=== PATIENT | male | born 1980 | race African-American/Black ===

== ENCOUNTER 2022-07-03 17:18 | Emergency (ER) | payer OTHER, SELFPAY ==
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
[2022-07-03 17:27] VITALS: BP 154/92; PULSE 68; RESP 18; TEMP 36.5; O2SAT 99; BMI 29.6
[2022-07-03] MEDS: Acetaminophen 325 MG TABLET 975 MG PO (18:29)
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
[2022-07-03 19:03] VITALS: BP 134/91; PULSE 52; RESP 15; O2SAT 100
== END 2022-07-03 20:40 | disposition home or self-care (01) ==
PROVIDERS: Emergency Provider Emergency Medicine
DX: S16.1XXA Strain of muscle, fascia and tendon at neck level, initial encounter (principal); S29.012A Strain of muscle and tendon of back wall of thorax, initial encounter; R51.9 Headache, unspecified; M54.2 Cervicalgia; X58.XXXA Exposure to other specified factors, initial encounter; Y93.9 Activity, unspecified; Y92.9 Unspecified place or not applicable; Y99.9 Unspecified external cause status
CPT/HCPCS: 70450; 72125; 72128; 99284

== ENCOUNTER 2024-09-11 09:37 | Emergency (ER) | payer OTHER, SELFPAY ==
--- NOTE | ~2024-09-11 | XR_ITS ---
EXAMINATION: XR LUMBOSACRAL SPINE CLINICAL INFORMATION: low back pain COMPARISON: None available. TECHNIQUE: Three views of the lumbosacral spine. FINDINGS: Castellvi type III sacralization. No acute cortical disruption or malalignment. No lytic or blastic lesions. XR/XR lumbar spine 2-3V IMPRESSION: Castellvi type III sacralization. Electronically signed by: Francois Isaac MD 09/11/2024 12:49 PM EDT
[2024-09-11 09:57] VITALS: BP 128/78; PULSE 63; RESP 18; TEMP 36.6; O2SAT 98; BMI 25.5
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
[2024-09-11 12:01] VITALS: BP 128/92; PULSE 64; RESP 14; TEMP 36.9; O2SAT 99
--- NOTE | 2024-09-11 12:12 | ECG_ITS ---
Test Reason : low back pain Blood Pressure : */* mmHG Vent. Rate : 51 BPM Atrial Rate : 51 BPM P-R Int : 186 ms QRS Dur : 88 ms QT Int : 418 ms P-R-T Axes : 68 50 42 degrees QTcB Int : 385 ms Sinus bradycardia Otherwise normal ECG No previous ECGs available Referred By: Martina Dhaliwal Electronically Signed By: Carl Agee
[2024-09-11 12:35] LABS: MANUAL DIFF FLAG NO
[2024-09-11 12:37] LABS: Basophils Percent Auto 0.5 % (0-2); Eosinophils Absolute Auto 0.1 X10*3/uL (0.0-0.4); Eosinophils Percent Auto 1.6 % (0-4); Hematocrit 40.7 % (42.0-52.0); Hemoglobin 14.3 g/dl (14.0-18.0); Imm Gran Abs Auto 0.01 X10*3/uL (0.00-0.03); Imm Gran Pct Auto 0.2 % (0.0-0.4); Lymphocytes Absolute Auto 2.3 X10*3/uL (1.2-4.9); Lymphocytes Percent Auto 51.9 % (20-40); Mean Corpuscular HGB Conc 35.1 g/dl (31.0-36.0); Mean Corpuscular Hemoglobin 29.9 pg (27.0-33.0); Mean Corpuscular Volume 85.1 fL (80.0-98.0); Mean Platelet Volume 9.6 fL (9.4-12.4); Monocytes Absolute Auto 0.4 X10*3/uL (0.1-1.2); Monocytes Percent Auto 9.8 % (2-11); Neutrophils Absolute Auto 1.6 x10*3/uL (2.0-8.3); Platelet Count 207 X10*3/uL (160-400); Red Blood Count 4.78 X10*6/uL (4.60-5.80); Red Cell Distribution Width 12.4 % (11.0-16.0); White Blood Count 4.4 X10*3/uL (4.8-10.8)
[2024-09-11 12:42] LABS: Appearance Urine Clear; Color Urine Yellow; Glucose Urine UA Negative (Negative); Leukocyte Esterase Urine Negative (Negative); Nitrite Urine Negative (Negative); Urine Blood Negative (Negative); Urine Ketones Trace mg/dL (Negative); Urine Protein Negative (Neg-Trace)
[2024-09-11 12:52] LABS: Alanine Aminotransferase 28 U/L (0-40); Albumin Level 4.3 g/dL (3.5-5.0); Alkaline Phosphatase 65 U/L (39-117); Anion Gap 10 (12-20); Aspartate Amino Transferase 21 U/L (5-37); Bilirubin Total 0.5 mg/dL (0.0-1.0); Blood Urea Nitrogen 8 mg/dL (9-16); C Reactive Protein 0.65 mg/dL (< or = 0.50); Calcium 9.1 mg/dL (8.4-10.2); Carbon Dioxide 27 mmol/L (22-29); Chloride 108 mmol/L (96-108); Estimated Glomerular Filt Rate > 60; Glucose Random 82 mg/dL (60-115); Potassium 3.7 mmol/L (3.3-5.1); Sodium 141 mmol/L (135-145)
[2024-09-11 12:59] LABS: Troponin-I High Sensitivity 9.6 ng/L (<3.5-35.0)
[2024-09-11 13:17] LABS: Erythrocyte Sedimentation Rate 6 MM/HR (0-15)
[2024-09-11 13:19] LABS: Influenza A PCR NEGATIVE (Negative); Influenza B PCR NEGATIVE (Negative); Resp Syncy Virus RNA Qual PCR NEGATIVE (Negative); SARS COV2 PCR INHOUSE NEGATIVE (Negative)
[2024-09-11] MEDS: Cyclobenzaprine HCl 5 MG TABLET PO (14:33)
[2024-09-11] MEDS: Ketorolac Tromethamine 15 MG/ML VIAL IM (14:33)
[2024-09-11 14:53] VITALS: BP 128/92; PULSE 64; RESP 14; TEMP 36.9; O2SAT 99
== END 2024-09-11 14:54 | disposition home or self-care (01) ==
PROVIDERS: Physician Assistant Medical; Emergency Provider Emergency Medicine Emergency Medical Services
DX: M54.50 Low back pain, unspecified (principal); B34.9 Viral infection, unspecified; R00.1 Bradycardia, unspecified; R50.9 Fever, unspecified; R51.9 Headache, unspecified; Z03.818 Encounter for observation for suspected exposure to other biological agents ruled out; Z79.899 Other long term (current) drug therapy
CPT/HCPCS: 0241U; 72100; 80053; 81003; 83735; 84484; 85025; 85652; 86140; 93005; 96372; 99284; J1885

== ENCOUNTER → 2024-09-11 12:12 | Outpatient (BNV) | payer OTHER, SELFPAY | PROVIDERS: Emergency Provider Emergency Medicine Emergency Medical Services; Visit Provider Radiology Diagnostic Radiology | DX: M54.50 Low back pain, unspecified (principal) | CPT/HCPCS: 72100 ==

== ENCOUNTER → 2024-09-11 12:12 | Outpatient (BNV) | payer OTHER, SELFPAY | PROVIDERS: Emergency Provider Emergency Medicine Emergency Medical Services; Visit Provider Internal Medicine Cardiovascular Disease | DX: R00.1 Bradycardia, unspecified (principal); M54.50 Low back pain, unspecified | CPT/HCPCS: 93010 ==

== ENCOUNTER 2025-01-25 11:45 | Outpatient (REF) | payer BC, SELFPAY ==
[2025-01-25 14:14] LABS: MANUAL DIFF FLAG NO
[2025-01-25 14:27] LABS: Hematocrit 40.9 % (42.0-52.0); Hemoglobin 14.1 g/dl (14.0-18.0); Imm Gran Abs Auto 0.00 X10*3/uL (0.00-0.03); Imm Gran Pct Auto 0.0 % (0.0-0.4); Lymphocytes Absolute Auto 2.2 X10*3/uL (1.2-4.9); Mean Corpuscular HGB Conc 34.5 g/dl (31.0-36.0); Mean Corpuscular Hemoglobin 29.2 pg (27.0-33.0); Mean Corpuscular Volume 84.7 fL (80.0-98.0); NRBC Abs Auto 0.000 X10*3/uL (0.0-0.012); NRBC Pct Auto 0.0 /100WBC (0.0-0.2); Platelet Count 261 X10*3/uL (160-400); Red Blood Count 4.83 X10*6/uL (4.60-5.80); White Blood Count 4.6 X10*3/uL (4.8-10.8)
[2025-01-25 14:38] LABS: Hemoglobin A1C 134.4295 umol/L; Total Hemoglobin (HGBA1C) 3716.9497 umol/L
[2025-01-25 14:46] LABS: Alanine Aminotransferase 25 U/L (0-40); Albumin Level 4.6 g/dL (3.5-5.0); Alkaline Phosphatase 67 U/L (39-117); Anion Gap 12 (12-20); Aspartate Amino Transferase 23 U/L (5-37); Blood Urea Nitrogen 9 mg/dL (9-16); Calcium 8.8 mg/dL (8.4-10.2); Carbon Dioxide 22 mmol/L (22-29); Chloride 111 mmol/L (96-108); Cholesterol 215 mg/dL (<200); Estimated Glomerular Filt Rate > 60; HDL Cholesterol 40 mg/dL (>40); Potassium 4.0 mmol/L (3.3-5.1); Sodium 141 mmol/L (135-145); Total Protein 7.9 g/dL (6.5-8.0); Triglycerides 80 mg/dL (<150)
[2025-01-25 17:53] LABS: Appearance Urine Clear; Glucose Urine UA Negative (Negative); PH 6.5 (5.0-9.0); Specific Gravity - Urine 1.020 (1.005-1.025)
[2025-01-25 18:30] LABS: Microalbum/Creatinine Ratio Ur 2.5 ug/mg cr (<30)
[2025-01-27 21:49] LABS: TS Negative Control Passed; TS Panel A 1; TS Panel B 1; TS Positive Control Passed; TSpotTB Negative (Negative)
== END 2025-01-25 11:46 | disposition home or self-care (01) ==
LOC: HO.WFDLDS 11:45
PROVIDERS: Visit Provider Family Medicine
DX: Z00.00 Encounter for general adult medical examination without abnormal findings (principal); Z11.1 Encounter for screening for respiratory tuberculosis; Z12.5 Encounter for screening for malignant neoplasm of prostate; I10 Essential (primary) hypertension; R73.01 Impaired fasting glucose
CPT/HCPCS: 36415; 80053; 80061; 81003; 82043; 82570; 83036; 84153; 84443; 85025; 86481

== ENCOUNTER 2025-04-27 12:12 | Outpatient (AMB) | payer OTHER, SELFPAY ==
--- NOTE | 2025-04-27 12:20 | MHC.PC.OV ---
Vital Signs 04/27/25 12:24 Height 5 ft 6 in Weight 171 lb 4 oz BMI 27.6 BP 139/89 Blood Pressure Location Rt brachial Position Sitting Respiration 18 Pulse 6 L Pulse Source Pulse Oximeter Temp 98.5 F Temp Source Oral Pulse Oximetry (%) 96 Oxygen Delivery Method Room Air Intake Visit Reasons: CPE with f/u labs and health maint. Intake Note: patient is scheduled for CPE labs are completed health maintenance is up to date [place] Slabs Required: No Allergies No Known Allergies Allergy (Verified 04/27/25 12:22) Tobacco use date assessed: 04/27/25 Dental Screening Dental Screen Date: 04/27/25 Did you have a dental visit in the last 12 months?: Yes Did you have a dental problem in the last 6 months where you did not have access to dental care?: No Was dental information given to patient?: No HPI CPE with f/u labs and health maint. HPI Details 45 y/o male presents for a CPE with f/u labs and health maint. Labs drawn 01/25/25. Reviewed labs with pt. Triglycerides 80. TC 215. LDL 159. HDL 40. PSA 1.20. Complaints of erectile dysfunction. Has complaints of intermittent asthma. COUNT INCLUDES [facility] Medical History Asthma Family History Mother High blood pressure Sister Diabetes Social History Housing: House Patient Tobacco Use Status: Never used Tobacco e-Cigarette/Vaping Use: Never Used service: No Current occupational status: employed Current occupation: senior living staff Cognitive needs: No Hearing needs: No Vision needs: No Questionnaire PHQ-9 Over the last 2 weeks, how often have you been bothered by any of the following problems? 1. Little interest or pleasure in doing things: not at all 2. Feeling down, depressed, or hopeless: not at all 3. Trouble falling or staying asleep, or sleeping too much: not at all 4. Feeling tired or having little energy: not at all 5. Poor appetite or overeating: not at all 6. Feeling bad about yourself - or that you are a failure or have let yourself or your family down: not at all 7. Trouble concentrating on things, such as reading the newspaper or watching television: not at all 8. Moving or speaking so slowly that other people could have noticed. Or the opposite - being so fidgety or restless that you have been moving around a lot more than usual: not at all 9. Thoughts that you would be better off or of hurting yourself in some way: not at all Total score: 0 Depression Screening Interpretation: Negative Depression Screening Done: Yes 98899 - PHQ-9 Billing: Yes Source: Developed by Drs. Lane Luna, Lindsay Brink, Dre Brennan and colleagues, with an educational sherita from [employer]. Thrive Questionnaire Date Thrive assessed: 04/27/25 I am a: Patient What is your living situation today?: I have a steady place to live Within the past 12 months, did the food you bought not last and you didn't have the money to get more?: Never true Within the past 12 months, did you worry whether your food would run out before you got money to buy more?: Never true Do you have trouble paying for medicines?: No Do you have trouble getting transportation to medical appointments?: No Do you have trouble paying your heating and electricity bill?: No Do you have trouble taking care of your child, family member or friend?: No Do you have trouble with day-to-day activities such as bathing, preparing meals, shopping, managing finances, etc.?: No Are you currently unemployed and looking for a job?: No Are you interested in more education?: Yes Currently or been in a relationship where the following occur: No concerns reported THRIVE Score: 0 AUDIT C Alcohol Use Questionnaire (AUDIT-C) 1. How often do you have a drink containing alcohol?: 2-4 times a month 2. How many drinks containing alcohol do you have on a typical day when you are drinking?: 1 or 2 3. How often do you have six or more drinks on one occasion?: Monthly Total Score: 4 Score Reviewed/Action Taken: Yes LARRY-7 AMB Questionnaire LARRY-7 Date LARRY - 7 assessed: 04/27/25 Feeling nervous, anxious, or on edge: 0 = Not at all Not being able to stop or control worryin = Not at all Worrying too much about different things: 0 = Not at all Trouble relaxin = Not at all Being so restless that it is hard to sit still: 0 = Not at all Becoming easily annoyed or irritable: 0 = Not at all Feeling afraid as if something awful might happen: 0 = Not at all Total LARRY-7 score (0-4 normal; 5-9 mild; 10-14 moderate; 15-21 severe): 0 Source: Developed by Drs. Lane Luna, Lindsay Brink, Dre Brennan and colleagues, with an educational sherita from [employer]. Review of Systems Const Denies chills, Denies fatigue, Denies fever(s), Denies headache(s) and Denies weakness Eyes Denies change in vision ENT Denies dizziness, Denies headache(s), Denies hearing loss, Denies nasal congestion, Denies sinus pain, Denies sinus pressure and Denies sore throat Card Denies chest pain, Denies lightheadedness, Denies dyspnea and Denies other (palpitations) Resp Denies cough, Denies dyspnea and Denies wheezing GI Denies abdominal pain, Denies melena, Denies hematochezia, Denies change in bowel habits, Denies dyspepsia and Denies nausea Denies hematuria and Denies dysuria Musc Denies abnormal gait, Denies myalgias, Denies arthralgias, Denies numbness and Denies tingling Skin/Breast Denies rash, Denies unusual bruising and Denies wounds Neuro Denies abnormal gait, Denies dizziness, Denies headache(s), Denies memory loss, Denies numbness, Denies Sensory deficit (Neuro), Denies tingling and Denies weakness Psych Denies anxiety, Denies depression and Denies memory loss Endo Denies cold intolerance, Denies fatigue, Denies heat intolerance, Denies polydipsia and Denies polyuria Bogdan/Lymph Denies easy bleeding and Denies easy bruising Aller/Immun Denies wheezing Physical exam (Primary Care) Vital Signs: Last Vital Signs Temp 98.5 F 04/27/25 12:24 Pulse 6 L 04/27/25 12:24 Resp 18 04/27/25 12:24 BP 139/89 04/27/25 12:24 Pulse Ox 96 04/27/25 12:24 Oxygen Delivery Method Room Air 04/27/25 12:24 BMI result Body Mass Index 27.6 Tobacco/Smoking Status: Tobacco use Status Tobacco use date assessed 04/27/25 04/27/25 12:30 Patient Tobacco Use Status Never used Tobacco 04/27/25 12:20 e-Cigarette/Vaping Use Never Used 04/27/25 12:20 PHQ-9: PHQ-9 Score PHQ-9: Total score 0 04/27/25 12:33 Depression Screening Interpretation: Negative Thrive Assessment: Date of Thrive Assessment Date Thrive assessed 04/27/25 04/27/25 12:30 Currently or been in a relationship where the following occur: No concerns reported Const General: no acute distress, well developed, alert and awake Nutritional Appearance: well nourished Orientation/consciousness: patient oriented x3 HENMT Head: Yes normocephalic and Yes atraumatic Ears: hearing grossly normal bilaterally and TM's normal bilaterally General nose exam: Normal external nose present and Normal nares present Mouth: Normal oral and palatal mucosa present and moist mucous membranes Teeth and gingiva: dentition normal Throat: Yes posterior oropharynx normal Eyes General: appearance normal, both eyes and all related structures Pupils: Equal, round and reactive pupils present and Pupil accommodation reflex normal EOM: EOMs intact bilaterally Neck Neck: Yes normal visual inspection, Yes no lymphadenopathy and Yes trachea midline Thyroid: Thyroid normal Carotids: no bruits Lymphatic: no lymphadenopathy noted Chest Chest palpation & inspection: normal inspection of the chest Resp Effort & Inspection: normal respiratory effort Auscultation: clear to auscultation bilaterally Cardio Rate: regular rate Rhythm: regular rhythm Heart sounds: S1 normal heart sound present, S2 normal heart sound present, no gallops, no murmurs and no rubs Bruits: no abdominal aortic bruits and no carotid bruits GI Palpation (GI): No Abdominal aortic bruit present, Soft to palpation, nontender, No hepatosplenomegaly present and No Rebound tenderness present Auscultation: normal bowel sounds General: Yes no CVA tenderness Back/Spine/Pelvis Back: no CVA tenderness Cervical Spine: cervical ROM normal and No Cervical spine tenderness Thoracic/Lumbar Spine: thoraco-lumbar ROM normal, No pain with thoraco-lumbar ROM, No thoracic spinal tenderness and No lumbar spinal tenderness Skin Lesions: no lesions Rashes: no rashes Trauma: no lacerations or abrasions Wounds: no wounds Nails: normal Neuro General: patient oriented x3 Cranial nerves: Yes Equal, round and reactive pupils present Cognition (Neuro): normal cognition Gait exam (Neuro): Normal gait present Motor exam (neuro): 5/5 motor strength present throughout Sensory Exam: No Sensory deficit (Neuro) Deep tendon reflexes (DTR's): Right patellar reflex intensity grade: 2+ and Left patellar reflex intensity grade: 2+ Extrem General: Yes normal to inspection and No edema Psych Appearance: grossly normal Affect: normal affect Attitude: cooperative Thought process: Normal thought process present Coding Level of Care Code Est Pt Level 3 (80301) Est Pt Prev Care 40-64y(23588) Diagnoses Adult general medical exam Z00.00 Elevated LDL cholesterol level E78.00 Asthma J45.909 Erectile dysfunction N52.9 Screening for prostate cancer Z12.5 Screening for colon cancer Z12.11 Additional Codes PHQ-9 - 42503 - PHQ-9 Billing: Yes ([id number]) Assessment & Plan Assessment & Plan (1) Adult general medical exam: Code(s): Z00.00 - Encounter for general adult medical examination without abnormal findings Category: Medical Plan: 45-year-old male presents for complete physical exam Encouraged healthy diet with lifestyle and plenty of exercise (2) Elevated LDL cholesterol level: Code(s): E78.00 - Pure hypercholesterolemia, unspecified Category: Medical Plan: LDL cholesterol is too high. Goal is less than 100 Encouraged lifestyle changes Will recheck in 3 months. We did discuss that if his lipid levels are still too high, we should use a medication. Patient understands. (3) Asthma: Code(s): J45.909 - Unspecified asthma, uncomplicated Category: Medical Plan: Intermittent asthma and patient notes that symptoms get worse in the fall and spring. He is almost out of albuterol Refilled albuterol She may also want to consider a daytime antihistamine he gets exacerbations of his asthma. (4) Erectile dysfunction: Code(s): N52.9 - Male erectile dysfunction, unspecified Category: Medical Plan: Patient notes erectile dysfunction. Encouraged good blood pressure and cholesterol control Hydrate well and encouraged good sleep. 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 (5) Screening for prostate cancer: Code(s): Z12.5 - Encounter for screening for malignant neoplasm of prostate Category: Medical Plan: PSA was within normal range. Will continue annual screening (6) Screening for colon cancer: Code(s): Z12.11 - Encounter for screening for malignant neoplasm of colon Category: Medical Plan: Refer to Gastroenterology for 1st screening colonoscopy Orders: Orders Comprehensive [place]. Panel Fast Today E78.00 - Pure hypercholesterolemia, unspecified, Z00.00 - Encounter for general adult medical examination without abnormal findings Lipid Panel Today E78.00 - Pure hypercholesterolemia, unspecified, Z00.00 - Encounter for general adult medical examination without abnormal findings Referrals Gastroenterology Referral Z12.11 - Encounter for screening for malignant neoplasm of colon Medications: Refilled albuterol sulfate 90 mcg/actuation (Ventolin HFA) 2 puffs inhalation Q4-6H PRN 8.5 grams 4RF shortness of breath or wheezing 30 days Discontinued cyclobenzaprine Discontinued Reason: Patient no longer taking 10 mg PO BEDTIME PRN 14 tabs 0RF muscle spasm cyclobenzaprine Discontinued Reason: Patient Completed Course 10 mg PO TID 7 days PRN 21 tabs 0RF muscle spasm
[2025-04-27 12:24] VITALS: BP 139/89; PULSE 6; RESP 18; TEMP 36.9; O2SAT 96; BMI 27.6
--- OUTSIDE RECORDS SUMMARY | 2025-04-27 13:43 | XMS_ITS ---
Author Name [facility] Organization Unknown Care Team Organization Name Specialty Phone Email Start Date End Da te [facility] [place] 01/13/2024 02/02/20 [facility] [place] 05/05/2022 02/14/20 24
--- OUTSIDE RECORDS SUMMARY | 2025-04-27 13:43 | XMS_ITS | Clinical Summary ---
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 Name Role Phone Unavailable Primary Care Provider Unavailabl e Social History Tobacco Use Types Packs/Day Years Used Date Smoking Tobacco: Never Assessed Sex and Gender Information Value Date Recorded Sex Assigned at Not on file Legal Sex Male 11:39 AM EST Gender Identity Not on file Sexual Orientation Not on file Plan of Treatment Health Maintenance Due Date Last Done Comments DTaP,Tdap,and Td Vaccines (1 - Tdap) 1998 Hepatitis B Vaccines (1 of 3 - 19+ 3-dose series) 1998 Depression Screening 06/28/2024 COVID-19 Vaccine ( - 2023-2 5 season) 2025 Influenza Vaccine (#1) 2025 RSV Immunization Adult Patie nts (1 - 1-dose 75+ series) 2054 HIB Vaccines Aged Out No longer eligi ble based on patient's age to complete this topic HPV Vaccines Aged Out No longer eligi ble based on patient's age to complete this topic Hepatitis A Vaccines Aged Out No long er eligible based on patient's age to complete this topic IPV Vaccines Aged Out No longer eligi ble based on patient's age to complete this topic MMR Vaccines Aged Out No longer eligi ble based on patient's age to complete this topic Meningococcal ACWY Vaccine Aged Out N o longer eligible based on patient's age to complete this topic Meningococcal B Vaccine Aged Out No l onger eligible based on patient's age to complete this topic Pneumococcal Vaccine: Pediat rics (0 to 5 Years) and At-Risk Patients (6 to 49 Years) Aged Out No longer eligible b ased on patient's age to complete this topic RSV Immunization Patients Un kraig 20 months Aged Out No longer eligible b ased on patient's age to complete this topic Varicella Vaccines Aged Out No longer eligible based on patient's age to complete this topic
== END 2025-04-27 12:50 | disposition home or self-care (01) ==
LOC: HO.HMCFM 12:13
PROVIDERS: PCP Family Medicine; Visit Provider Family Medicine
DX: Z00.00 Encounter for general adult medical examination without abnormal findings (principal); E78.00 Pure hypercholesterolemia, unspecified; N52.9 Male erectile dysfunction, unspecified; R03.0 Elevated blood-pressure reading, without diagnosis of hypertension; J45.20 Mild intermittent asthma, uncomplicated; Z12.5 Encounter for screening for malignant neoplasm of prostate; Z12.11 Encounter for screening for malignant neoplasm of colon

== ENCOUNTER → 2025-04-27 12:12 | Outpatient (BNVA) | payer OTHER, SELFPAY | PROVIDERS: PCP Family Medicine; Visit Provider Family Medicine | DX: Z00.00 Encounter for general adult medical examination without abnormal findings (principal); E78.00 Pure hypercholesterolemia, unspecified; E78.5 Hyperlipidemia, unspecified; R03.0 Elevated blood-pressure reading, without diagnosis of hypertension; N52.9 Male erectile dysfunction, unspecified; J45.909 Unspecified asthma, uncomplicated | CPT/HCPCS: 96127 ==

== ENCOUNTER 2025-06-08 10:13 | Emergency (ER) | payer OTHER, SELFPAY ==
--- NOTE | ~2025-06-08 | XR_ITS ---
EXAMINATION: XR HIP 1 VIEW LEFT WITH PELVIS HISTORY: pain COMPARISON: There are no prior studies available for comparison. FINDINGS: A single AP view of the pelvis and two views of the left hip are submitted. Osseous mineralization is normal. There is no fracture or dislocation. The joint space is maintained. The soft tissues are unremarkable. XR/XR hip LT w PEL1V IMPRESSION: Unremarkable examination of the left hip. Electronically signed by: Lane Lilly MD 06/08/2025 10:59 AM [facility]
[2025-06-08 10:22] VITALS: BP 138/93; PULSE 88; RESP 18; TEMP 37.2; O2SAT 100; BMI 27.9
--- NOTE | 2025-06-08 10:24 | ED_ITS ---
HPI - General Adult General Chief complaint: Extremity Injury, Lower Stated complaint: L Side Hip Pain No Injury Time Seen by Provider: 06/08/25 11:45 Source: patient, RN notes reviewed and old records reviewed Mode of arrival: ambulatory Limitations: no limitations History of Present Illness ED Provider: Racheal HPI narrative: Patient is a 45-year-old male with history of lower back pain presenting to the ED with complaint of left buttock pain radiating down left leg to distal thigh. Denies fall or other trauma. Denies recent fevers. Denies history of IV drug use or cancer. Denies any saddle anesthesia or bowel or bladder incontinence. He has not taken any [id number] medications for his states pain began Wednesday. Also complaining of headache since last night. Denies worst headache of life, denies sudden onset, denies any dizziness or lightheadedness. MD complaint: left hip pain Onset (ago): day(s) Related Data Previous Rx's ?Medication ?Instructions ?Recorded albuterol sulfate 90 mcg/actuation 2 puff inhalation Q 4-6H PRN 04/27/25 aerosol inhaler (Ventolin HFA) shortness of breath or wheezing 30 days #8.5 grams lidocaine 5 % topical patch 1 patch topical DAILY #15 ea 06/08/25 naproxen 500 mg tablet 500 mg PO BID #14 tabs 06/08 prednisone 10 mg tablet See Rx Instructions .Route 1 08/09/24 .COMPLEX #15 tabs Allergies Allergy/AdvReac Type Severity Reaction Status Date / Time No Known Allergies Allergy Verified 06/08/25 10:23 Review of Systems 2 Review of Systems: as per hpi Yes all other systems are reviewed and are negative Constitutional: Constitutional: Reports as per HPI [facility] Past Medical History Medical History Asthma Family History Family History Mother High blood pressure Sister Diabetes Social History Social History Housing: House Patient Tobacco Use Status: Never used Tobacco e-Cigarette/Vaping Use: Never Used Advance Directives: No Advance Directives Information Provided: Yes service: No Current occupational status: employed Current occupation: prison staff Cognitive needs: No Hearing needs: No Vision needs: No Physical Exam ED Vital Signs: Vital Signs - 24 hr 06/08/25 10:22 Temperature 98.9 F Pulse Rate 88 Respiratory Rate 18 Blood Pressure 138/93 H Pulse Oximetry 100 Oxygen Delivery Method Room Air BMI result Body Mass Index 27.9 Vital signs have been reviewed and appear to be correct. Blood pressure normal. Heart rate normal. Respiratory rate normal. Temperature normal. Oxygen saturation normal. Const General: cooperative, healthy appearing and no acute distress Orientation/consciousness: oriented to person, oriented to place, oriented to time and patient oriented x3 Limitations: no limitations HENMT Head: Yes normocephalic and Yes atraumatic Ears: external ears normal General nose exam: Normal external nose present Face and sinus: Yes face symmetric Mouth: oropharynx normal and moist mucous membranes Throat: Yes uvula midline Eyes Pupils: Equal, round and reactive pupils present Neck Neck: Yes normal visual inspection and Yes supple Resp Effort & Inspection: normal respiratory effort and able to speak in complete sentences Auscultation: clear to auscultation bilaterally Cardio Rate: regular rate Rhythm: regular rhythm Heart sounds: S1 normal heart sound present and S2 normal heart sound present GI Palpation (GI): Soft to palpation and nontender Auscultation: normoactive bowel sounds General: Yes no CVA tenderness Back/Spine/Pelvis Back: no CVA tenderness Thoracic/Lumbar Spine: thoracic and lumbar spine normal to inspection, thoraco- lumbar ROM normal, straight leg raise negative bilaterally, pain with thoraco- lumbar ROM, No thoracic spinal tenderness and No lumbar spinal tenderness Pelvis: no pain with anterior-posterior compression and no pain with lateral compression Skin General skin exam: elasticity normal and turgor normal Neuro General: oriented to person, oriented to place, oriented to time, patient oriented x3, moves all extremities, no focal motor deficits and CN's II-XI intact bilaterally Cranial nerves: Yes Equal, round and reactive pupils present Cognition (Neuro): normal cognition Extrem General: Yes full ROM, Yes no pedal edema and Yes no calf tenderness Psych Mental Status: mental status grossly normal Affect: normal affect Thought process: Normal thought process present Course Course Course Narrative: Rapid medical examination performed in triage by Martina Dhaliwal PA-C: Patient is a 45 year old assigned male at presenting to the emergency department with left hip pain and a headache. Patient states the last day he has had left sided hip pain and a headache. Patient denies any sick contacts or recent travel. Detailed physical exam and review of systems are deferred to the roller stainer. Labs, imaging, swabs ordered. Patient placed back in the waiting room pending room availability and results. Medical Decision Making Medical Decision Making [facility] Narrative: Patient is a 45-year-old male with history of lower back pain presenting to the ED with complaint of left buttock pain radiating down left leg to distal thigh. On exam patient is awake, A+Ox3, VS WNL, afebrile, normal neurological exam without focal deficits, physical exam findings as above. Given reported symptoms and physical exam findings, initial differential includes but is not limited to initial differential includes lumbar strain, lumbar radiculopathy, degenerative disc disease, disc herniation, spinal stenosis, spondylosis. Less likely vertebral fracture. No red flag findings concerning for malignancy/mass, SEA, cauda equina/cord compression. Labs unremarkable, viral panel negative. Did not feel imaging is indicated as he denies fall or other trauma. Will medicate the patient with prednisone and Toradol in the ED and discharged home on tapering course of prednisone, naproxen and topical lidocaine patches. Advised follow up with PCP. Return precautions discussed. Patient verbalized understanding of and agreement with plan. Differential Diagnosis Differential Diagnoses: The differential diagnosis associated with the presentation includes As per [facility] Admission/Observation Consideration of admission/observation: Escalation of care including admission/observation considered Patient would have been admitted to the hospital and transferred to appropriate facility had their clinical presentation warranted hospital admission. Lab Data [facility] Lab Attestation statement: I reviewed the patient's lab results. as per [facility] 06/08/25 10:33 06/08/25 10:33 Labs: Lab Results 06/08/25 Range/Units 10:33 WBC 8.3 (4.8-10.8) X10*3/uL RBC 4.94 (4.60-5.80) X10*6/uL Hgb 14.4 (14.0-18.0) g/dl Hct 42.4 (42.0-52.0) % MCV 85.8 (80.0-98.0) fL MCH 29.1 (27.0-33.0) pg MCHC 34.0 (31.0-36.0) g/dl RDW 12.1 (11.0-16.0) % Plt Count 207 (160-400) X10*3/uL MPV 9.0 L (9.4-12.4) fL Immature Gran % (Auto) 0.2 (0.0-0.4) % Neut % (Auto) 57.5 (45-73) % Lymph % (Auto) 32.4 (20-40) % [place] % (Auto) 8.1 (2-11) % Eos % (Auto) 1.2 (0-4) % Baso % (Auto) 0.6 (0-2) % Lymph # (Auto) 2.7 (1.2-4.9) X10*3/uL [place] # (Auto) 0.7 (0.1-1.2) X10*3/uL Eos # (Auto) 0.1 (0.0-0.4) X10*3/uL Baso # (Auto) 0.1 (0.0-0.2) X10*3/uL Abs Immat Gran (auto) 0.02 (0.00-0.03) X10*3/uL Absolute Neuts (auto) 4.8 (2.0-8.3) x10*3/uL Absolute Nucleated RBC 0.000 (0.0-0.012) X10*3/uL Nucleated RBC % (auto) 0.0 (0.0-0.2) /100WBC Sodium 140 (135-145) mmol/L Potassium 3.8 (3.3-5.1) mmol/L Chloride 105 (96-108) mmol/L Carbon Dioxide 26 (22-29) mmol/L Anion Gap 13 (12-20) BUN 12 (9-16) mg/dL Creatinine 1.23 (0.5-1.4) mg/dL Estim Creat Clear Calc 73.8 Estimated GFR > 60 Random Glucose 103 (60-115) mg/dL Calcium 9.6 D (8.4-10.2) mg/dL Magnesium 2.0 (1.6-2.6) mg/dL Total Bilirubin 1.2 H (0.0-1.0) mg/dL AST 22 (5-37) U/L ALT 24 (0-40) U/L Alkaline Phosphatase 67 (39-117) U/L Total Protein 8.0 (6.5-8.0) g/dL Albumin 4.7 (3.5-5.0) g/dL Influenza Type A (PCR) NEGATIVE (Negative) Influenza Type B (PCR) NEGATIVE (Negative) RSV RNA Qual (PCR) NEGATIVE (Negative) SARS-CoV-2 RNA (RT-PCR) NEGATIVE (Negative) External Record Review External record reviewed: Inpatient record, Office record and Outpatient record Prescription Management I considered prescription management with: Pain Medication and Other Discharge Plan Discharge Clinical Impression: Lumbar radiculopathy Patient Disposition: Home, Self-Care Instructions: Lumbar Radiculopathy (ED) Additional Instructions: You were evaluated in the emergency department today for lower back pain. This is likely due to an inflammation of the sciatic nerve with runs from the lower back down both legs. You are being prescribed a course of prednisone which is a steroid to decrease inflammation. You are also being prescribed naproxen which is an anti-inflammatory medication. You have been prescribed 5% topical lidocaine patches which you can wear for up to 12 hours in a 24 hour period. Do not apply heat directly over the patches. Use all medications as prescribed. Please schedule an appointment for follow-up with your primary care physician this week for further evaluation of your symptoms. Return to the emergency department if you experience worsening back pain, difficulty walking, fevers, numbness, tingling, incontinence, groin numbness or tingling, or any other concerning symptoms. Prescriptions: New prednisone 10 mg tablet See Rx Instructions .ROUTE .COMPLEX Qty: 15 0RF Rx Instructions: 50mg (5 tabs) x1 day, then 40 mg (4 tabs) x1 day, then 30 mg (3 tabs) x1 day, then 20 mg (2 tabs) times 1 day, then 10 mg (1 tab) x1 day lidocaine 5 % adhesive patch,medicated 1 patch topical DAILY Qty: 15 0RF Rx Instructions: leave on most painful area for up to 12 hrs naproxen 500 mg tablet 500 mg PO BID Qty: 14 0RF No Action albuterol sulfate [Ventolin HFA] 90 mcg/actuation HFA aerosol inhaler 2 puff inhalation Q4-6H PRN (Reason: shortness of breath or wheezing) 30 Days Qty: 8.5 4RF Stand Alone Forms: Work/School Release Print Language: Wolof
[2025-06-08 10:36] LABS: MANUAL DIFF FLAG NO
[2025-06-08 10:38] LABS: Hematocrit 42.4 % (42.0-52.0); Hemoglobin 14.4 g/dl (14.0-18.0); Imm Gran Abs Auto 0.02 X10*3/uL (0.00-0.03); Imm Gran Pct Auto 0.2 % (0.0-0.4); Lymphocytes Absolute Auto 2.7 X10*3/uL (1.2-4.9); Mean Corpuscular HGB Conc 34.0 g/dl (31.0-36.0); Mean Corpuscular Hemoglobin 29.1 pg (27.0-33.0); Mean Corpuscular Volume 85.8 fL (80.0-98.0); NRBC Abs Auto 0.000 X10*3/uL (0.0-0.012); NRBC Pct Auto 0.0 /100WBC (0.0-0.2); Platelet Count 207 X10*3/uL (160-400); Red Blood Count 4.94 X10*6/uL (4.60-5.80); White Blood Count 8.3 X10*3/uL (4.8-10.8)
[2025-06-08 11:03] LABS: Alanine Aminotransferase 24 U/L (0-40); Albumin Level 4.7 g/dL (3.5-5.0); Alkaline Phosphatase 67 U/L (39-117); Anion Gap 13 (12-20); Aspartate Amino Transferase 22 U/L (5-37); Blood Urea Nitrogen 12 mg/dL (9-16); Calcium 9.6 mg/dL (8.4-10.2); Carbon Dioxide 26 mmol/L (22-29); Chloride 105 mmol/L (96-108); Creatinine Clr Calc Pharmacy 73.8; Estimated Glomerular Filt Rate > 60; Magnesium 2.0 mg/dL (1.6-2.6); Potassium 3.8 mmol/L (3.3-5.1); Sodium 140 mmol/L (135-145); Total Protein 8.0 g/dL (6.5-8.0)
[2025-06-08 11:18] LABS: Resp Syncy Virus RNA Qual PCR NEGATIVE (Negative); SARS COV2 PCR INHOUSE NEGATIVE (Negative)
[2025-06-08 14:08] VITALS: BP 138/93; PULSE 88; RESP 18; TEMP 37.2; O2SAT 100
== END 2025-06-08 14:09 | disposition home or self-care (01) ==
PROVIDERS: Physician Assistant Medical; Emergency Provider Emergency Medicine; PCP Family Medicine
DX: M54.16 Radiculopathy, lumbar region (principal); R51.9 Headache, unspecified; Z03.818 Encounter for observation for suspected exposure to other biological agents ruled out
CPT/HCPCS: 73502; 80053; 83735; 85025; 87637; 96372; 99283; 99284; J1885

== ENCOUNTER → 2025-06-08 10:25 | Outpatient (BNV) | payer OTHER, SELFPAY | PROVIDERS: Emergency Provider Emergency Medicine; PCP Family Medicine; Visit Provider Radiology Diagnostic Radiology | DX: M25.552 Pain in left hip (principal) | CPT/HCPCS: 73502 ==